=== PATIENT | male | born 1985 | race Caucasian/White ===

== ENCOUNTER 2016-05-11 07:48 | Day surgery (SDC) | payer OTHER ==
[~2016-05-11] VITALS: Ht 177.8 cm; Wt 88.5 kg
[~2016-05-11 07:48] MED LIST: APIDRA SOL100 UNIT/1 SC; LANTUS 10100 UNITS/ SC; LISINOPRIL5 MG PO
[2016-05-11 08:27] VITALS: BP 168/92
[2016-05-11 08:47] LABS: MCH 29.2 PG (29.0-34.0); MCHC 34.1 G/DL (30.0-36.0); MCV 85.8 FL (86-99); MEAN PLAT.VOLUME 9.7 uM^3 (9.0-12.4); PLATELET COUNT 272 K/uL (156-360); RBC DIS.WIDTH-CV 12.5 % (11.8-14.6); RBC DIS.WIDTH-SD 39.5 % (39-53); RED BLOOD COUNT 4.31 M/uL (4.00-5.50); WHITE BLOOD COUNT 6.9 K/uL (4.1-10.2)
[2016-05-11 09:30] LABS: ALKALINE PHOSPHATASE 60 IU/L (3-129); ANION GAP 5 MEQ/L (2-14); CHLORIDE 107 MEQ/L (99-109); GFR ESTIMATE (CALCULATED) > 59 mL/min/; GLUCOSE 114 mg/dL (70-99); POTASSIUM 3.9 MEQ/L (3.7-5.4); SAMPLE HEMOLYSIS CHECK 0; SAMPLE ICTERIC CHECK 0; SAMPLE LIPEMIA CHECK 0; SODIUM 140 MEQ/L (136-147); TOTAL BILIRUBIN 0.7 MG/DL (0.0-1.0); UREA NITROGEN (BUN) 27 mg/dL (9-23)
[2016-05-11 12:02] LABS: POINT-OF-CARE METER ID UU13113675
[2016-05-11 12:09] VITALS: BP 168/100
[2016-05-11 12:50] VITALS: BP 133/79
== END 2016-05-11 12:55 | disposition home or self-care (01) ==
LOC: SDC 07:48
PROVIDERS: Ophthalmology
DX: E11.3592 Type 2 diabetes mellitus with proliferative diabetic retinopathy without macular edema, left eye (principal); H33.42 Traction detachment of retina, left eye; I10 Essential (primary) hypertension; G40.909 Epilepsy, unspecified, not intractable, without status epilepticus
CPT/HCPCS: 80053; 82948; 85027; J0690; J1100; J2250; J2405; J2795; J3010; J3300